=== PATIENT | female | born 1950 | race Caucasian/White ===

== ENCOUNTER → 2019-09-19 | Outpatient (CLI) | payer BC, MEDICARE | LOC: M.ULTRA 10:23 | DX: M79.605 Pain in left leg (principal); R60.9 Edema, unspecified; Z88.8 Allergy status to other drugs, medicaments and biological substances; Z88.0 Allergy status to penicillin ==

== ENCOUNTER → 2020-09-30 | Outpatient (CLI) | payer BC, MEDICARE | LOC: M.RAD 09:35 | PROVIDERS: ATTEND Specialist | DX: Z12.31 Encounter for screening mammogram for malignant neoplasm of breast (principal) ==

== ENCOUNTER 2021-04-06 03:15 | Emergency (ER) | payer BC, MEDICARE ==
[~2021-04-06] VITALS: Ht 167.6 cm; Wt 79.8 kg
[2021-04-06] MEDS ORDERED: TIZANIDINE HCL4 M1 PO (03:37)
[2021-04-06] MEDS ORDERED: MONTELUKAST SODI4 M1 PO (03:38)
[2021-04-06] MEDS ORDERED: ZYRTEC10 M5 PO (03:38)
[2021-04-06] MEDS ORDERED: PRAVASTATIN SOD10 MG PO (03:38)
[2021-04-06] MEDS ORDERED: VITAMIN D310 MC2 PO (03:39)
[2021-04-06] MEDS ORDERED: MUCUS RELIEF400 MG PO (03:39)
[2021-04-06] MEDS ORDERED: FISH OIL 1,0001 EAC9 PO (03:39)
[2021-04-06] MEDS ORDERED: IRON325 M1 PO (03:39)
[2021-04-06] MEDS ORDERED: BUPROPION HCL100 MG PO (03:40)
[2021-04-06] MEDS ORDERED: SERTRALINE HCL100 MG PO (03:40)
[2021-04-06] MEDS ORDERED: PREVACID30 MG PO (03:40)
[2021-04-06] MEDS ORDERED: HYDROCHLOROTH12.5 M2 PO (03:41)
[2021-04-06] MEDS ORDERED: LOSARTAN POTAS100 MG PO (03:41)
[2021-04-06] MEDS ORDERED: VYZULTA5 ML OPHTHALMIC (03:42)
[2021-04-06 04:30] VITALS: BP 137/60
== END 2021-04-06 04:31 | disposition home or self-care (01) ==
LOC: M.ERS 03:15
DX: S90.32XA Contusion of left foot, initial encounter (principal); Z96.651 Presence of right artificial knee joint; Z88.0 Allergy status to penicillin; Z88.2 Allergy status to sulfonamides; W01.0XXA Fall on same level from slipping, tripping and stumbling without subsequent striking against object, initial encounter; Y93.89 Activity, other specified; Y92.89 Other specified places as the place of occurrence of the external cause; Y99.8 Other external cause status

== ENCOUNTER 2021-06-11 16:07 | Emergency (ER) | payer BC, MEDICARE ==
[~2021-06-11] VITALS: Ht 167.6 cm; Wt 82.6 kg
[~2021-06-11 16:07] MED LIST changes: -FLOMAX0.4 MG PO; -HYDROCODON-ACE1 EAC7 PO
[2021-06-11 17:46] LABS: URINE BILIRUBIN NEGATIVE (Negative); URINE BLOOD 3+ (Negative); URINE GLUCOSE-RANDOM NEGATIVE (Negative); URINE KETONES NEGATIVE (Negative); URINE LEUKOCYTES-REFLEX NEGATIVE (Negative); URINE NITRITE-REFLEX NEGATIVE (Negative); URINE PROTEIN TRACE (Negative); URINE SPECIFIC GRAVITY 1.025 (1.005-1.030); URINE UROBILINOGEN 0.2 E.U./dl (0.2-1.0)
[2021-06-11 17:50] LABS: URINE CLARITY CLOUDY; URINE COLOR RED
[2021-06-11 18:00] LABS: SQUAMOUS 0-3 Few /LPF (0-3)
[2021-06-11 18:01] LABS: BACTERIA-REFLEX None Seen /HPF (None Seen); CASTS None Seen /LPF (None Seen); CRYSTALS None Seen /LPF (None Seen); URINE RBC >20 Many /HPF (0-2); URINE WBC-REFLEX 0-5 Rare /HPF (0-5)
[2021-06-11 18:16] LABS: ABSOLUTE BASOPHILS 0.1 thou/uL (0.0-0.2); ABSOLUTE EOSINOPHILS 0.2 thou/uL (0.0-0.7); ABSOLUTE MONOCYTES 0.8 thou/uL (0.0-1.2); ABSOLUTE NEUTROPHILS 5.3 thou/uL (1.6-8.1); EOSINOPHILS 1.7 %; HEMATOCRIT 35.5 % (37.0-47.0); HEMOGLOBIN 12.1 gm/dL (12.0-15.0); LYMPHOCYTES 32.2 %; MCH 30.4 pg (26.0-34.0); MCHC 34.1 g/dL (28.0-37.0); MONOCYTES 8.6 %; MPV 7.7 fl. (7.2-11.1); NUCLEATED RBCS 0 /100WBC; PLATELET COUNT* 290 thou/uL (150-400); POLYS 56.5 %; RBC 3.98 mil/uL (4.20-5.00); RDW-CV 15.9 % (10.5-14.5); WBC 9.4 thou/uL (4.0-11.0)
[2021-06-11 18:24] LABS: CALCIUM 8.9 mg/dL (8.5-10.1); CREATININE 1.1 mg/dL (0.6-1.3); POTASSIUM 3.3 mmol/L (3.5-5.1)
[2021-06-11 18:31] LABS: ALBUMIN 3.7 g/dL (3.4-5.0); TOTAL BILIRUBIN 0.4 mg/dL (<0.1-1.0); TOTAL PROTEIN 7.6 g/dL (6.4-8.2)
[2021-06-11] MEDS ORDERED: FLOMAX0.4 MG PO ×2 (18:48→19:04)
[2021-06-11] MEDS ORDERED: HYDROCODON-ACE1 EAC7 PO ×2 (18:48→19:04)
[2021-06-11 19:05] VITALS: BP 155/46
== END 2021-06-11 19:06 | disposition home or self-care (01) ==
LOC: M.ERS 16:07
PROVIDERS: Nurse Practitioner
DX: N20.0 Calculus of kidney (principal); Z96.651 Presence of right artificial knee joint

== ENCOUNTER → 2021-06-11 | Outpatient (CLI) | payer BC, MEDICARE ==
[~2021-06-11] MED LIST: BUPROPION HCL100 MG PO; FISH OIL 1,0001 EAC9 PO; FLOMAX0.4 MG PO; HYDROCHLOROTH12.5 M2 PO; HYDROCODON-ACE1 EAC7 PO; IRON325 M1 PO; LOSARTAN POTAS100 MG PO; MONTELUKAST SODI4 M1 PO; MUCUS RELIEF400 MG PO; PRAVASTATIN SOD10 MG PO; PREVACID30 MG PO; SERTRALINE HCL100 MG PO; TIZANIDINE HCL4 M1 PO; VITAMIN D310 MC2 PO; VYZULTA5 ML OPHTHALMIC; ZYRTEC10 M5 PO
== END ==
LOC: M.CT 14:48
PROVIDERS: ATTEND Specialist
DX: N13.39 Other hydronephrosis (principal); N20.1 Calculus of ureter; K57.30 Diverticulosis of large intestine without perforation or abscess without bleeding; M47.815 Spondylosis without myelopathy or radiculopathy, thoracolumbar region; M41.80 Other forms of scoliosis, site unspecified; R39.198 Other difficulties with micturition; R10.9 Unspecified abdominal pain; R31.9 Hematuria, unspecified

== ENCOUNTER 2021-06-13 11:40 | Emergency (ER) | payer BC, MEDICARE ==
[~2021-06-13] VITALS: Ht 175.3 cm; Wt 81.7 kg
[~2021-06-13 11:40] MED LIST changes: +FLOMAX0.4 MG PO; +HYDROCODON-ACE1 EAC7 PO
[2021-06-13 12:45] LABS: ABSOLUTE BASOPHILS 0.1 thou/uL (0.0-0.2); ABSOLUTE EOSINOPHILS 0.1 thou/uL (0.0-0.7); ABSOLUTE LYMPHOCYTES 1.6 thou/uL (0.8-5.3); ABSOLUTE MONOCYTES 0.7 thou/uL (0.0-1.2); ABSOLUTE NEUTROPHILS 8.1 thou/uL (1.6-8.1); BASOPHILS 0.8 %; EOSINOPHILS 0.5 %; HEMATOCRIT 33.2 % (37.0-47.0); HEMOGLOBIN 11.4 gm/dL (12.0-15.0); LYMPHOCYTES 15.4 %; MCH 30.9 pg (26.0-34.0); MCHC 34.2 g/dL (28.0-37.0); MCV 90.2 fL (80.0-100.0); MONOCYTES 7.1 %; MPV 7.6 fl. (7.2-11.1); NUCLEATED RBCS 0 /100WBC; PLATELET COUNT* 269 thou/uL (150-400); POLYS 76.2 %; RBC 3.68 mil/uL (4.20-5.00); WBC 10.6 thou/uL (4.0-11.0)
[2021-06-13 12:52] LABS: CALCIUM 8.9 mg/dL (8.5-10.1); CREATININE 1.4 mg/dL (0.6-1.3); POTASSIUM 3.7 mmol/L (3.5-5.1)
[2021-06-13 12:56] LABS: ALBUMIN 3.7 g/dL (3.4-5.0); TOTAL BILIRUBIN 0.4 mg/dL (<0.1-1.0); TOTAL PROTEIN 7.8 g/dL (6.4-8.2)
[2021-06-13 14:09] LABS: URINE BILIRUBIN NEGATIVE (Negative); URINE BLOOD 3+ (Negative); URINE CLARITY CLEAR; URINE COLOR YELLOW; URINE GLUCOSE-RANDOM NEGATIVE (Negative); URINE KETONES NEGATIVE (Negative); URINE LEUKOCYTES-REFLEX 1+ (Negative); URINE NITRITE-REFLEX NEGATIVE (Negative); URINE PROTEIN NEGATIVE (Negative); URINE SPECIFIC GRAVITY >= 1.030 (1.005-1.030); URINE UROBILINOGEN 0.2 E.U./dl (0.2-1.0)
[2021-06-13 14:19] LABS: SQUAMOUS 4-10 Moderate /LPF (0-3); URINE WBC-REFLEX 0-5 Rare /HPF (0-5)
[2021-06-13 14:20] LABS: URINE RBC 0-2 Rare /HPF (0-2)
[2021-06-13 14:26] VITALS: BP 136/56
[2021-06-13 14:26] LABS: MUCUS None Seen strn/LPF (None Seen)
[2021-06-13 14:31] LABS: CASTS None Seen /LPF (None Seen)
[2021-06-13 14:32] LABS: URIC ACID CRYSTALS 0-3 Few /LPF (None Seen)
== END 2021-06-13 14:26 | disposition home or self-care (01) ==
LOC: M.ERS 11:40
PROVIDERS: Family Medicine
DX: N20.0 Calculus of kidney (principal); Z20.822 Contact with and (suspected) exposure to COVID-19; Z96.651 Presence of right artificial knee joint; Z79.899 Other long term (current) drug therapy; Z88.0 Allergy status to penicillin; Z88.2 Allergy status to sulfonamides

== ENCOUNTER → 2021-07-29 | Outpatient (CLI) | payer BC, MEDICARE | LOC: M.RAD 08:15 | PROVIDERS: ATTEND Specialist | DX: M21.861 Other specified acquired deformities of right lower leg (principal) ==